=== PATIENT | female | born 1940 | race Caucasian/White ===

== ENCOUNTER → 2017-10-15 08:40 | Outpatient (CLI) | payer MEDICARE, OTHER, SELFPAY ==
[2017-10-15 11:08] LABS: Anion Gap 5 (5-15); BUN 24 mg/dL (7-18); BUN/Creat Ratio 24.3 RATIO (10-20); Calcium,Total 8.9 mg/dL (8.5-10.1); Chloride 109 mmol/L (98-107); Cholesterol 229 mg/dL (200); Creatinine, Serum 0.99 mg/dL (0.55-1.02); EST Glomerular Filtration Rate 58 mL/min (>60); Est Glom Filt Rate - Afr Amer 70 mL/min (>60); Glucose 100 mg/dL (74-106); High Density Lipoprotein 53 mg/dL; Potassium 4.6 mmol/L (3.5-5.1); Sodium Level 142 mmol/L (136-145); Thyroid Stim Hormone (TSH) 3.26 uIU/mL (0.358-3.74); Triglycerides 164 mg/dL; Very Low Density Lipoprotein 33 mg/dL (5-40)
== END ==
PROVIDERS: Family Provider Family Medicine; PCP Family Medicine; Visit Provider Nurse Practitioner Adult Health
DX: Z13.1 Encounter for screening for diabetes mellitus (principal); Z13.220 Encounter for screening for lipoid disorders; Z13.29 Encounter for screening for other suspected endocrine disorder
CPT/HCPCS: 36415; 80048; 80061; 84443

== ENCOUNTER 2018-06-28 20:47 | Emergency (ER) | payer MEDICARE, OTHER, SELFPAY ==
[2018-06-28 20:48] VITALS: BP 156/81; PULSE 105; RESP 20; TEMP 36.6; O2SAT 98; BMI 28.0
--- NOTE | 2018-06-28 22:00 | RAD_ITS ---
STUDY: X-RAY CHEST REASON FOR EXAM: Female, 77 years old. Cough TECHNIQUE: Frontal and lateral views COMPARISON: June 08, 2015 FINDINGS: The lungs are clear and expanded. There is no demonstrated pleural abnormality. Normal size heart. Normal mediastinum and aliya. Normal visualized pulmonary arteries. Normal visualized aortic arch and descending thoracic aorta. Degenerative changes of the visualized thoracic spine. Normal visualized ribs, clavicles, and shoulders. There is no demonstrated abnormality of the visualized soft tissue structures of the upper abdomen. RAD/Chest PA and Lateral IMPRESSION: Normal x-ray examination of the chest. Electronically Signed: Deandre Parks DO at 23:05 EST Tel [phone], Service support ,
[2018-06-28 22:17] VITALS: O2SAT 98
[2018-06-28 22:23] VITALS: PULSE 97; O2SAT 97
--- NOTE | 2018-06-29 00:13 | ED.DCSUM_ITS ---
- ER Visit Summary Date of Service: 06/29/18 Chief Complaint: Bad cold History of Present Illness: The patient is a 77 F with bad cold symptoms that started several days ago. The patient was exposed to her daughter who had similar symptoms. She just does not feel good. She feels tired and nauseated. She has a cough, runny nose, and left ear pain. Patient is fairly healthy otherwise. Denies chest pain. Denies fevers. Denies any vomiting or diarrhea. Denies any difficulty with urination. Physical Examination: Afebrile and vital signs unremarkable. Patient appears in no acute distress. HEENT exam unremarkable. Neck is nontender with good range of motion. Heart regular rate and rhythm. Lungs clear. Skin appears normal in color. Cranial nerves grossly intact. Moves all extremities. Test Results: Influenza test negative. Chest x-ray unremarkable. Emergency Department Course and Treatment: I suspect the patient has an upper respiratory infection. Because of her age and her symptoms. I did check a flu test and a chest x-ray. These tests were unremarkable. This is likely a viral syndrome. I see no indication at this time for antibiotics. Patient may take [id number] remedies for her symptoms. Follow-up with her family doctor for recheck. Return right away for new or worsening symptoms. Treatment Plan: As above Disposition: Discharge Impression: 1. Upper respiratory infection This note was generated with Press Play dictation software. It may contain incorrect words, spelling, and punctuation that were not noted in review of the chart prior to signing ED Disposition - Plan for ED Patient: Chief Complaint: Cold Sx Referrals: Abad Villarreal MD [Primary Care Provider] -
--- NOTE | 2018-06-29 00:13 | ED.DEP ---
ED Disposition - Plan for ED Patient: Chief Complaint: Cold Sx Instructions: ED Upper Resp Infec No Abx Tx Referrals: Abad Villarreal MD [Primary Care Provider] -
[2018-06-29 00:28] VITALS: BP 157/78; PULSE 93; O2SAT 96
== END 2018-06-29 00:28 | disposition home or self-care (01) ==
PROVIDERS: Emergency Provider Emergency Medicine; Family Provider Family Medicine; PCP Family Medicine
DX: J06.9 Acute upper respiratory infection, unspecified (principal)
CPT/HCPCS: 71046; 87804; 99282

== ENCOUNTER → 2018-08-21 13:28 | Outpatient (CLI) | payer MEDICARE, SELFPAY ==
--- NOTE | 2018-08-21 13:36 | BI_ITS ---
MAMMOGRAPHY - BILATERAL SCREENING REASON FOR EXAM: Female, 77 years old. Routine annual screening examination. PERTINENT HISTORY: Non-contributory. TECHNIQUE: Digital bilateral breast narinder (3D mammographic acquisition) in the CC and MLO projections. 2-D mediolateral oblique (MLO) and craniocaudad (CC) views of both breasts were obtained. CAD: Full Field Digital Mammography with Computer Added Detection was performed. COMPARISON: Comparison is made with prior study dated April 30, 2017 and November 23, 2010. FINDINGS: Breast Composition: The breasts are heterogeneously dense, which may obscure small masses. There are no dominant masses or suspicious calcifications. Stable small bilateral axillary lymph nodes. No other significant abnormalities are identified. There has been no significant change since the prior study. BI/SCREENING MAMM (CAD), BILAT IMPRESSION: Stable bilateral screening mammogram. Yearly follow-up mammogram recommended. (A) ASSESSMENT CATEGORY: BIRADS Category 2: Benign. A letter regarding these results will be sent to the patient by the facility within 30 days. Approximately 10% of breast cancers are not detected by mammography. A normal mammogram should not delay biopsy of a clinically suspicious abnormality. [id number] Electronically Signed: David Rojas MD at 14:51 EST Tel [phone], Service support ,
== END ==
PROVIDERS: Family Provider Family Medicine; PCP Family Medicine; Referring Provider Family Medicine; Visit Provider Family Medicine
DX: Z12.31 Encounter for screening mammogram for malignant neoplasm of breast (principal)
CPT/HCPCS: 77063; 77067

== ENCOUNTER → 2018-12-26 | Outpatient (CLI) | payer MEDICARE, OTHER, SELFPAY ==
[2018-12-26 10:08] LABS: Absolute Neutrophil Count 4.6 X10^3/uL (2.0-7.7); Basophil# 0.02 X10^3/uL; Basophil% 0.3 % (0-1); Eosinophil# 0.09 X10^3/uL; Eosinophils% 1.2 % (0-5); Hematocrit 40.8 % (37-47); Hemoglobin 13.1 g/dl (12.0-15.0); Lymphocyte % 27.1 % (19-41); Mean Corp Hgb Conc 32.1 g/gl (32-36); Mean Corpuscular Volume 90.5 fL (81-99); Mean Platelet Vol. 12.3 fl (6.2-12.0); Monocyte% 9.5 % (0-10); Neutrophil # 4.55 X10^3/uL (2.7-7.7); Neutrophil % 61.8 % (47-70); Platelet Count 187 K/mm3 (150-450); RBC Distribution Width CV 14.4 % (11.6-14.6); RBC Distribution Width SD 47.3 fl (35.1-43.9); Red Blood Count 4.51 M/mm3 (4.2-5.4); White Blood Count 7.4 K/mm3 (4.4-11.0)
[2018-12-26 10:11] LABS: POSITIVE COUNT NO; POSITIVE DIFFERENTIAL NO; POSITIVE MORPHOLOGY NO
[2018-12-26 10:24] LABS: Anion Gap 6 (5-15); BUN 27 mg/dL (7-18); BUN/Creat Ratio 24.8 RATIO (10-20); Calcium,Total 9.3 mg/dL (8.5-10.1); Chloride 107 mmol/L (98-107); Creatinine, Serum 1.09 mg/dL (0.55-1.02); EST Glomerular Filtration Rate 51 mL/min (>60); Est Glom Filt Rate - Afr Amer 62 mL/min (>60); Glucose 103 mg/dL (74-106); Potassium 4.2 mmol/L (3.5-5.1); Sodium Level 142 mmol/L (136-145)
[2018-12-26 10:46] LABS: Vitamin D,25 Hydroxy 31.2 ng/mL (29.95-100.01)
== END | disposition home or self-care (01) ==
LOC: MTLAB 08:45
PROVIDERS: Family Provider Family Medicine; PCP Family Medicine; Referring Provider Family Medicine; Visit Provider Family Medicine
DX: E55.9 Vitamin D deficiency, unspecified (principal); I77.9 Disorder of arteries and arterioles, unspecified; Z13.29 Encounter for screening for other suspected endocrine disorder
CPT/HCPCS: 36415; 80048; 82306; 84443; 85025

== ENCOUNTER → 2020-03-10 | Outpatient (CLI) | payer MEDICARE, OTHER, SELFPAY ==
--- NOTE | 2020-03-10 12:19 | BI_ITS ---
MAMMOGRAPHY - BILATERAL SCREENING REASON FOR EXAM: Female, 79 years old. Routine annual screening examination. PERTINENT HISTORY: Non-contributory. TECHNIQUE: Digital bilateral breast araseli (3D mammographic acquisition) in the CC and MLO projections. 2-D mediolateral oblique (MLO) and craniocaudad (CC) views of both breasts were obtained. CAD: Full Field Digital Mammography with Computer Added Detection was performed. COMPARISON: Comparison is made with prior study dated 08/21/2018 and 04/30/2017. FINDINGS: Breast Composition: The breasts are heterogeneously dense, which may obscure small masses. There are no dominant masses or suspicious calcifications. Stable small benign-appearing bilateral axillary lymph nodes. No other significant abnormalities are identified. There has been no significant change since the prior study. BI/SCREEN MAMM (CAD) W/ARASELI BILAT IMPRESSION: Stable bilateral screening mammogram. Yearly follow-up mammogram recommended. (A) ASSESSMENT CATEGORY: BIRADS Category 2: Benign. A letter regarding these results will be sent to the patient by the facility within 30 days. Approximately 10% of breast cancers are not detected by mammography. A normal mammogram should not delay biopsy of a clinically suspicious abnormality. [id number] Electronically Signed: David Rojas, at 13:29 EDT , Service support ,
== END | disposition home or self-care (01) ==
LOC: OPBI 12:18
PROVIDERS: PCP Family Medicine; Referring Provider Family Medicine; Visit Provider Family Medicine
DX: Z12.31 Encounter for screening mammogram for malignant neoplasm of breast (principal)
CPT/HCPCS: 77063; 77067

== ENCOUNTER → 2020-03-16 | Outpatient (CLI) | payer MEDICARE, OTHER, SELFPAY ==
[2020-03-16 18:14] LABS: Vitamin D,25 Hydroxy 35.2 ng/mL
[2020-03-16 18:24] LABS: ALB/GLOB Ratio 1.1 RATIO (0.9-2.4); AST(SGOT) 20 U/L (15-37); Alanine Aminotransfer ALT/SGPT 17 U/L (13-56); Albumin, Serum 3.9 g/dL (3.2-5.0); Alkaline Phosphatase 81 U/L (45-117); Anion Gap 5 (5-15); BUN 26 mg/dL (7-18); BUN/Creat Ratio 27.2 RATIO (10-20); Calcium,Total 8.7 mg/dL (8.5-10.1); Chloride 106 mmol/L (98-107); Cholesterol 263 mg/dL (200); Creatinine, Serum 0.96 mg/dL (0.55-1.02); EST Glomerular Filtration Rate 60 mL/min (>60); Est Glom Filt Rate - Afr Amer 72 mL/min (>60); Globulin 3.5 g/dL (2.2-4.2); Glucose 86 mg/dL (74-106); High Density Lipoprotein 50 mg/dL; Potassium 4.2 mmol/L (3.5-5.1); Protein, Total 7.4 g/dL (6.4-8.2); Sodium Level 139 mmol/L (136-145); Triglycerides 304 mg/dL; Very Low Density Lipoprotein 61 mg/dL (5-40)
== END | disposition home or self-care (01) ==
LOC: MTLAB 14:54
PROVIDERS: PCP Family Medicine; Referring Provider Family Medicine; Visit Provider Family Medicine
DX: M81.0 Age-related osteoporosis without current pathological fracture (principal); E78.00 Pure hypercholesterolemia, unspecified
CPT/HCPCS: 36415; 80053; 80061; 82306

== ENCOUNTER → 2020-03-25 | Outpatient (CLI) | payer MEDICARE, OTHER, SELFPAY ==
--- NOTE | 2020-03-25 12:12 | BD_ITS ---
STUDY: DUAL ENERGY X-RAY ABSORPTIOMETRY / DXA REASON FOR EXAM: Female, 79 years old. 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 COMPARISON: None. FINDINGS: Lumbar Spine (L1-L4): g/cm2 (0.946) / T-score (-1.9) / Z-score (0.0) Findings are suggestive of osteopenia with a moderate fracture risk. Left Femur Total: g/cm2 (0.745) / T-score (-2.1) / Z-score (-0.1) Left Femoral Neck: g/cm2 (0.612) / T-score (-3.1) / Z-score (-0.9) Right Femur Total: g/cm2 (0.803) / T-score (-1.6) / Z-score (0.4) Right Femoral Neck: g/cm2 (0.653) / T-score (-2.8) / Z-score (-0.6) BD/Dexa Bone Density Study IMPRESSION: The patient is considered osteoporotic as outlined below according to World Ryan Organization (WHO) criteria with a high fracture risk. Reference Information: The T-score is the number of standard deviations above or below the standard which is normal for young adults at their peak bone mineral density. The World Health Organization (WHO) interprets the T-scores as follows: Above -1 Normal bone density Between -1 and -2.5 Osteopenia Equal to / or below -2.5 Osteoporosis As a practical clinical guideline, osteopenia may be graded as follows: Mild -1 through -1.5 Moderate -1.6 through -2.0 Severe -2.1 through -2.4 The Z-score is the number of standard deviations above or below age-matched controls. A Z-score of less than -1.5 would be considered abnormal. References: 1. NIH Osteoporosis and Related Bone Diseases http://www.osteo.org 2. International Society for Clinical Densitometry http://www.iscd.org 3. National Osteoporosis Foundation http://www.nof.org Electronically Signed: David Rojas, at 13:32 EDT , Service support ,
== END | disposition home or self-care (01) ==
LOC: OPBD 12:06
PROVIDERS: PCP Family Medicine; Referring Provider Family Medicine; Visit Provider Family Medicine
DX: M81.0 Age-related osteoporosis without current pathological fracture (principal)
CPT/HCPCS: 77080

== ENCOUNTER → 2021-06-07 14:17 | Outpatient (CLI) | payer MEDICARE, OTHER, SELFPAY ==
--- NOTE | 2021-06-07 14:19 | BI_ITS ---
MAMMOGRAPHY - BILATERAL SCREENING REASON FOR EXAM: Female, 80 years old. Routine annual screening examination. PERTINENT HISTORY: Non-contributory. TECHNIQUE: Digital bilateral breast narinder (3D mammographic acquisition) in the CC and MLO projections. 2-D mediolateral oblique (MLO) and craniocaudad (CC) views of both breasts were obtained. CAD: Full Field Digital Mammography with Computer Added Detection was performed. COMPARISON: Comparison is made with prior study dated 03/10/2020 and 08/21/2018. FINDINGS: Breast Composition: The breasts are heterogeneously dense, which may obscure small masses. There are no dominant masses or suspicious calcifications. Stable small benign appearing bilateral axillary nodes. No other significant abnormalities are identified. There has been no significant change since the prior study. BI/SCREENING MAMM (CAD), BILAT IMPRESSION: Stable bilateral screening mammogram. Yearly follow-up mammogram recommended. (A) ASSESSMENT CATEGORY: BIRADS Category 2: Benign. A letter regarding these results will be sent to the patient by the facility within 30 days. Approximately 10% of breast cancers are not detected by mammography. A normal mammogram should not delay biopsy of a clinically suspicious abnormality. [id number] Electronically Signed: David Rojas MD at 11:12 EDT , Service support ,
== END ==
PROVIDERS: Referring Provider Family Medicine; Visit Provider Family Medicine
DX: Z12.31 Encounter for screening mammogram for malignant neoplasm of breast (principal)
CPT/HCPCS: 77067

== ENCOUNTER 2021-08-24 16:41 | Outpatient (CLI) | payer MEDICARE, SELFPAY ==
[2021-08-24 17:08] LABS: Absolute Lymphocyte Count 2.51 X10^3/uL (0.83-4.51); Absolute Neutrophil Count 6.7 X10^3/uL (2.0-7.7); Basophil# 0.03 X10^3/uL; Basophil% 0.3 % (0-1); Eosinophil# 0.12 X10^3/uL; Eosinophils% 1.2 % (0-5); Hematocrit 40.6 % (37-47); Hemoglobin 12.9 g/dL (12.0-15.0); Lymphocyte # 2.51 X10^3/ul (0.83-4.51); Mean Corp Hgb Conc 31.8 g/dL (32-36); Mean Corpuscular Hgb 28.9 pg (27.0-32.0); Mean Corpuscular Volume 90.8 fL (81-99); Mean Platelet Vol. 11.7 fl (6.2-12.0); Monocyte# 0.68 X10^3/uL; Monocyte% 6.8 % (0-10); NRBC Flagged by Analyzer 0 % (0-5); Neutrophil # 6.65 X10^3/uL (2.7-7.7); Neutrophil % 66.4 % (47-70); Platelet Count 236 K/mm3 (150-450); RBC Distribution Width CV 13.9 % (11.6-14.6); RBC Distribution Width SD 46.1 fl (35.1-43.9); Red Blood Count 4.47 M/mm3 (4.2-5.4)
[2021-08-24 18:16] LABS: ALB/GLOB Ratio 1.1 RATIO (0.9-2.4); AST(SGOT) 17 U/L (15-37); Alanine Aminotransfer ALT/SGPT 17 U/L (13-56); Albumin, Serum 3.8 g/dL (3.2-5.0); Alkaline Phosphatase 69 U/L (45-117); Anion Gap 5 (5-15); BUN 24 mg/dL (7-18); Calcium,Total 9.1 mg/dL (8.5-10.1); Chloride 107 mmol/L (98-107); Creatinine, Serum 0.96 mg/dL (0.55-1.02); EST Glomerular Filtration Rate 59 mL/min (>60); Est Glom Filt Rate - Afr Amer 72 mL/min (>60); Globulin 3.4 g/dL (2.2-4.2); Glucose 94 mg/dL (74-106); Potassium 4.4 mmol/L (3.5-5.1); Protein, Total 7.2 g/dL (6.4-8.2); Sodium Level 138 mmol/L (136-145); Thyroid Stim Hormone (TSH) 2.79 uIU/mL (0.358-3.74)
[2021-08-25 09:03] LABS: Syphilis Antibodies Non-reactive; Vitamin B12 345 pg/mL (211-911); Vitamin D,25 Hydroxy 36.3 ng/mL
== END 2021-08-24 23:59 | disposition short-term general hospital (02) ==
LOC: POLAB3 16:44
PROVIDERS: Visit Provider Family Medicine Geriatric Medicine
DX: E55.9 Vitamin D deficiency, unspecified (principal); G30.9 Alzheimer's disease, unspecified; R53.83 Other fatigue
CPT/HCPCS: 36415; 80053; 82306; 82607; 82746; 84443; 85025; 86780

== ENCOUNTER 2021-11-24 13:38 | Outpatient (CLI) | payer MEDICARE, SELFPAY ==
--- NOTE | 2021-11-24 13:52 | CDU_ITS ---
Reason For Study: Disorder of arteries and arterioles Rt. Velocities/BP Lt. Velocities/BP Prox CCA 116.5/17.3 cm/sec. Prox CCA 99.5/16 cm/sec. Mid CCA 83.9/13.4 cm/sec. Mid CCA 70.8/8.2 cm/sec. Dist CCA 74.7/10.8 cm/sec. Dist CCA 85.1/13.4 cm/sec. Prox ICA 56.5/12.1 cm/sec. Prox ICA 47.7/10.8 cm/sec. Mid ICA 66.9/20 cm/sec. Mid ICA 73/13.6 cm/sec. Dist ICA 76/18.6 cm/sec. Dist ICA 64.5/17 cm/sec. Rt. ICA/CCA = 0.91. Lt. ICA/CCA = 0.86. Prox ECA 74.7/5.6 cm/sec. Prox ECA 79.9/5.6 cm/sec. Rt. Vert. 57.8/16 cm/sec. Lt. Vert. 41.9/7.8 cm/sec. Right Extracranial There is homogeneous, smooth atherosclerotic plaque noted in the right common carotid artery. There is heterogeneous, irregular atherosclerotic plaque noted in the right internal carotid artery. There is intimal thickening but no significant atherosclerotic plaque noted in the right external carotid artery. Antegrade flow is noted in the right vertebral artery. Left Extracranial There is intimal thickening but no significant atherosclerotic plaque noted in the left common carotid artery. There is heterogeneous, irregular atherosclerotic plaque noted in the left internal carotid artery. The left internal carotid artery is very tortuous. There is intimal thickening but no significant atherosclerotic plaque noted in the left external carotid artery. Antegrade flow is noted in the left vertebral artery. Procedure Carotid Duplex 15612. This is a Carotid Duplex examination using B-mode, color flow and specral Doppler. Exam performed in department. VL/Carotid Duplex Ultrasound Interpretation Summary Mild (<50%) stenosis right extracranial internal carotid. Mild (<50%) stenosis left extracranial internal carotid. Flow within the vertebral arteries is antegrade bilaterally. Ordering Physician: Davin Wray Referring Physician: Davin Wray Performed By: Janette Maki RVT
== END 2021-11-24 23:59 | disposition home or self-care (01) ==
PROVIDERS: Referring Provider Family Medicine; Visit Provider Family Medicine
DX: I77.9 Disorder of arteries and arterioles, unspecified (principal); I79.8 Other disorders of arteries, arterioles and capillaries in diseases classified elsewhere
CPT/HCPCS: 93880

== ENCOUNTER 2021-11-30 19:03 | Emergency (ER) | payer MEDICARE, SELFPAY ==
[2021-11-30 19:04] VITALS: BP 193/86; PULSE 63; RESP 19; TEMP 36.6; O2SAT 100; BMI 26.2
--- NOTE | 2021-11-30 19:22 | RAD_ITS ---
EXAM: XR LEFT FOOT COMPLETE, 3 OR MORE VIEWS CLINICAL INDICATION: injury fall tonight. anterior pain and swelling to left foot TECHNIQUE: Frontal, lateral and oblique views of the left foot. This report was created using [facility] report generation technology. COMPARISON: None. FINDINGS: BONES/JOINTS: Degenerative findings of first metatarsal phalangeal joint. There is a calcaneal spur. There is an enthesophyte involving the posterior superior calcaneus at the site of insertion of the Achilles tendon. No acute fracture. No subluxation. Normal alignment. No sclerotic or destructive changes observed. SOFT TISSUES: Unremarkable. No soft tissue swelling or gas. No radiopaque foreign body. RAD/Foot min 3 Views IMPRESSION: Degenerative findings of first metatarsal phalangeal joint. Electronically Signed: Justin Olivares MD at 19:56 EDT Reading Location ID and State: [facility] / [place] , Service support ,
[2021-11-30] MEDS: Acetaminophen 500 MG Tablet 1000 MG PO (19:24)
--- NOTE | 2021-11-30 19:24 | EDS_ITS ---
HPI History of Present Illness Chief Complaint: Lower Extremity Injury Informant: patient Narrative Narrative: Brought in by private for left foot injury occurring 3 PM today. Reports getting off the couch from a nap when she is through the blanket over catching her foot coming down on this. There is no head injuries. Swelling to the dorsal foot. Increased [place] walking therefore came by EMS no medication taken. No history of fractures. No anticoagulation medicines. States she takes a vitamin D and then was started on a statin yesterday by her PCP after carotid studies. No other complaints. Shortly after received fax from urgent care patient was sent from there. There is concerns of patient was dizzy, however she denies any of the symptoms. No headaches. No falls. No images were performed at the facility. Prior similar symptoms: No PFSH PFSH Home Medications Vitamin D3 1 tab PO DAILY 06/28/18 [History Last Taken Unknown] Allergy/AdvReac Type Severity Reaction Status Date / Time Sulfa (Sulfonamide AdvReac Vomiting Verified 11/30/21 19:06 Antibiotics) Social History Smoking Status: Never smoker ROS ROS ED Constitutional Constitutional ED: Denies chills, fever(s) or sweats Eyes Eyes: Denies change in vision ENT ENT ED: Denies dysphagia or sore throat Cardiovascular Cardiovascular: Denies chest pain, leg edema, palpitations or racing heartbeat Respiratory/Chest Respiratory/Chest: Denies cough, dyspnea or dyspnea on exertion Gastrointestinal Gastrointestinal: Denies abdominal pain, diarrhea, nausea or vomiting Genitourinary Genitourinary ED: Denies dysuria, hematuria or urinary frequency Musculoskeletal Musculoskeletal: Reports other Details: Left foot injury ; Denies back pain, extremity pain or neck pain Integumentary Denies rash or wounds Neurologic Neurologic: Denies headache(s), paresthesias or weakness EXAM Physical Exam Const Vital Signs: 11/30/21 19:04 Temperature 97.8 F Temperature Source Temporal Pulse Rate 63 Respiratory Rate 19 H Blood Pressure 193/86 H Blood Pressure Mean 121 Pulse Ox 100 Oxygen Delivery Method Room Air Positive well nourished and well developed General Appearance ED: well developed and NAD HEENT Reports moist mucous membranes normocephalic and atraumatic Eyes PERRL, EOMs intact bilaterally and conjunctivae normal General Eye ED: Yes normal appearance of both eyes Neck no lymphadenopathy and supple General: Negative for tenderness Chest Wall Chest: Negative for tenderness Resp normal respiratory effort and normal air movement Effort and Inspection: symmetric chest movement; Negative for respiratory distress Cardio regular rate, regular rhythm and no murmurs Peripheral Pulses: pulses 2+ throughout GI normal to inspection, nondistended, normoactive bowel sounds and non-tender Palpation: Negative for guarding or rebound tenderness present Back/Spine no CVA tenderness and no thoracic nor lumbar tenderness Extremity Extremity Narrative: Left lower extremity: No knee or ankle tenderness. There is slight midfoot tenderness there is ecchymosis across the dorsal foot mid region there is mild proximal fifth base tenderness. Skin is intact. Neuro vas intact distally. General Extremety ED: Yes edema; Negative for tenderness General Extremity: edema Neuro oriented x3 and no sensory deficits noted Sensorium / Orientation: awake and alert Skin no rashes or lesions noted and no wounds MDM MDM MDM Narrative Medical decision making narrative: Three-view x-ray left foot reviewed by myself and read by radiology no acute fractures degenerative changes noted of the first metatarsophalangeal joint. Tylenol was given Gaurav wrap to the foot. She states she has a cane at home. She will use this for stability. She will continue Tylenol as needed. All questions were answered. Radiography Diagnostic Testing: Clinical Impression(s) from Imaging Studies Foot X-Ray 11/30/21 19:22 IMPRESSION: Degenerative findings of first metatarsal phalangeal joint. Electronically Signed: Justin Olivares MD at 19:56 EDT Reading Location ID and State: [facility] / [place] , Service support , Discharge Plan Triage Chief Complaint: Lower Extremity Injury ED Provider: Carlos Borjas Dx/Rx/DC Orders Clinical Impression: Sprain of foot, left, Contusion of foot, left, Elevated blood pressure reading Instructions: ED Foot Contusion, ED Foot Sprain Prescriptions: No Action Vitamin D3 1 tab PO DAILY RF: 0 Primary Care Provider: Davin Wray Referrals: Davin Wray MD [Primary Care Provider] - 5-7 Days Activity Restrictions/Additional Instructions: left foot xray negative. Continue gaurav wrap, use cane as needed. Continue tylenol as needed. follow up with your doctor. Disposition Disposition: Home, Self Care Discharge Date/Time: 11/30/21 20:07
== END 2021-11-30 20:07 | disposition home or self-care (01) ==
PROVIDERS: Emergency Provider Emergency Medicine; PCP Family Medicine; Visit Provider Emergency Medicine
DX: S93.602A Unspecified sprain of left foot, initial encounter (principal); R03.0 Elevated blood-pressure reading, without diagnosis of hypertension; W19.XXXA Unspecified fall, initial encounter
CPT/HCPCS: 73630; 99283

== ENCOUNTER → 2022-04-04 | Outpatient (CLI) | payer MEDICARE, SELFPAY ==
--- NOTE | 2022-04-04 10:52 | BD_ITS ---
STUDY: DUAL ENERGY X-RAY ABSORPTIOMETRY / DXA REASON FOR EXAM: Female, 81 years old. [id number]. The patient is postmenopausal. TECHNIQUE: Bone Mineral Density (BMD) measurements of lumbar spine and bilateral hips were obtained. COMPARISON: Comparison is made with prior study 03/25/2020. FINDINGS: Lumbar Spine (L1-L4): g/cm2 (0.801) / T-score (-2.1) / Z-score (0.6) Findings are suggestive of osteopenia with a high fracture risk. Left Femur Total: g/cm2 (0.693) / T-score (-2.0) / Z-score (0.2) Left Femoral Neck: g/cm2 (0.509) / T-score (-3.1) / Z-score (-0.6) Right Femur Total: g/cm2 (0.755) / T-score (-1.5) / Z-score (0.7) Right Femoral Neck: g/cm2 (0.531) / T-score (-2.9) / Z-score (-0.4) The T-Scores on the most recent prior examination were: Lumbar Spine (L1-L4): There has been worsening of bone density since the previous examination. Left Femur Total: which represents an improvement of 0.9. Right Femur Total: which represents an improvement of 1.6%. BD/Dexa Bone Density Study IMPRESSION: The patient is considered osteoporotic as outlined below according to World [employer] Organization (WHO) criteria with a high fracture risk. There has been improvement of bone density since the previous examination. Reference Information: The T-score is the number of standard deviations above or below the standard which is normal for young adults at their peak bone mineral density. The World Health Organization (WHO) interprets the T-scores as follows: Above -1 Normal bone density Between -1 and -2.5 Osteopenia Equal to / or below -2.5 Osteoporosis As a practical clinical guideline, osteopenia may be graded as follows: Mild -1 through -1.5 Moderate -1.6 through -2.0 Severe -2.1 through -2.4 The Z-score is the number of standard deviations above or below age-matched controls. A Z-score of less than -1.5 would be considered abnormal. References: 1. NIH Osteoporosis and Related Bone Diseases www osteo.org 2. International Society for Clinical Densitometry www iscd.org 3. National Osteoporosis Foundation www nof.org Electronically Signed: David Rojas MD at 10:23 EDT ,
== END | disposition home or self-care (01) ==
LOC: OPBD 10:42
PROVIDERS: PCP Family Medicine; Visit Provider Family Medicine
DX: M81.0 Age-related osteoporosis without current pathological fracture (principal)
CPT/HCPCS: 77080

== ENCOUNTER → 2022-05-17 | Outpatient (CLI) | payer MEDICARE, SELFPAY ==
[2022-05-17 15:28] LABS: Color, Urine Yellow (Yellow); Glucose, Dipstick Normal (Normal); Ketone-Dipstick Negative (Negative); Leukocyte Esterase-Dipstick 500 /ul (Negative); Nitrite-Dipstick Negative (Negative); Occult Blood-Urine 50 /ul (Negative); Protein-Dipstick 30 mg/dl (Negative); Urine Bilirubin Dipstick Negative (Negative); Urine Clarity Sl. Cloudy (Clear); Urine Urobilinogen Normal (Normal)
== END | disposition home or self-care (01) ==
PROVIDERS: PCP Family Medicine; Referring Provider Family Medicine; Visit Provider Family Medicine
DX: N39.0 Urinary tract infection, site not specified (principal)
CPT/HCPCS: 81002; 87077; 87086; 87088

== ENCOUNTER → 2022-06-05 | Outpatient (CLI) | payer MEDICARE, SELFPAY ==
[2022-06-05 15:43] LABS: ALB/GLOB Ratio 0.9 RATIO (0.9-2.4); AST(SGOT) 22 U/L (15-37); Alanine Aminotransfer ALT/SGPT 19 U/L (13-56); Albumin, Serum 3.3 g/dL (3.2-5.0); Alkaline Phosphatase 75 U/L (45-117); Anion Gap 8 (5-15); BUN 22 mg/dL (7-18); BUN/Creat Ratio 22.6 RATIO (10-20); Chloride 104 mmol/L (98-107); Cholesterol 240 mg/dL (200); Creatinine, Serum 0.97 mg/dL (0.55-1.02); EST Glomerular Filtration Rate 58 mL/min (>60); Est Glom Filt Rate - Afr Amer 70 mL/min (>60); Globulin 3.7 g/dL (2.2-4.2); Glucose 90 mg/dL (74-106); High Density Lipoprotein 52 mg/dL; Potassium 4.5 mmol/L (3.5-5.1); Sodium Level 139 mmol/L (136-145); Triglycerides 215 mg/dL; Very Low Density Lipoprotein 43 mg/dL (5-40); Vitamin D,25 Hydroxy 49.2 ng/mL
[2022-06-05 16:11] LABS: PTHIN 51.1 pg/mL (18.4-80.1)
== END | disposition home or self-care (01) ==
LOC: MFPLAB 11:17
PROVIDERS: PCP Family Medicine; Visit Provider Family Medicine
DX: M81.0 Age-related osteoporosis without current pathological fracture (principal); I77.9 Disorder of arteries and arterioles, unspecified; E78.00 Pure hypercholesterolemia, unspecified
CPT/HCPCS: 36415; 80053; 80061; 82306; 83970

== ENCOUNTER → 2022-08-29 | Outpatient (CLI) | payer MEDICARE, SELFPAY ==
[2022-08-29 15:31] LABS: Hematocrit 42.9 % (37-47); Hemoglobin 13.4 g/dL (12.0-15.0); Mean Corp Hgb Conc 31.2 g/dL (32-36); Mean Corpuscular Hgb 29.1 pg (27.0-32.0); Mean Corpuscular Volume 93.3 fL (81-99); Mean Platelet Vol. 13.2 fl (6.2-12.0); Platelet Count 174 K/mm3 (150-450); White Blood Count 7.7 K/mm3 (4.4-11.0)
[2022-08-29 16:15] LABS: CRP 6.55 mg/L (0.0-3.0)
[2022-08-31 15:08] LABS: Cytoplasmic Ab (C-ANCA) <1:20 titer (Neg:<1:20)
[2022-08-31 18:55] LABS: Perinuclear Ab (P-ANCA) <1:20 titer (Neg:<1:20)
== END | disposition home or self-care (01) ==
LOC: MTLAB 13:33
PROVIDERS: PCP Family Medicine; Referring Provider Family Medicine; Visit Provider Family Medicine
DX: J32.9 Chronic sinusitis, unspecified (principal)
CPT/HCPCS: 36415; 85027; 86140; 86256

== ENCOUNTER → 2023-03-15 | Outpatient (CLI) | payer MEDICARE, SELFPAY ==
--- NOTE | 2023-03-15 09:27 | US_ITS ---
EXAM: US ABDOMEN LIMITED CLINICAL INDICATION: Fullness in L upper quadrant TECHNIQUE: Real-time ultrasound of the abdomen with image documentation. COMPARISON: No relevant prior studies available. FINDINGS: SPLEEN: Mildly heterogeneous. No focal lesion. 9.5 cm x 4.4 cm x 7.6 cm. Patent periportal vessels. LEFT KIDNEY: 8.7 cm x 4.8 cm x 4.9 cm, lower limits of normal size. Isoechoic renal cortex, this may be due to medical renal disease or normal variation. No hydronephrosis or perinephric fluid. Shadowing echogenic 1.8 cm x 1.4 cm x 0.4 cm structure in the left renal pelvis and the stone. FLUID: No fluid in the left upper quadrant. OTHER: Evaluated reported region of fullness in the left upper quadrant, separate from spleen and kidney. No specific acute abnormality. US/Abdomen Limited IMPRESSION: Echogenic shadowing focus at the left renal pelvis may be stone. No jt hydronephrosis or perinephric fluid. Nonspecific left upper quadrant findings. Limited left upper quadrant exam. Electronically Signed: Coty Aldana MD at 7:44 EDT ,
== END | disposition home or self-care (01) ==
LOC: US 09:26
PROVIDERS: PCP Family Medicine; Referring Provider Family Medicine; Visit Provider Family Medicine
DX: R19.8 Other specified symptoms and signs involving the digestive system and abdomen (principal)
CPT/HCPCS: 76705

== ENCOUNTER → 2023-05-29 | Outpatient (CLI) | payer MEDICARE, SELFPAY ==
[2023-05-29 15:15] LABS: Absolute Lymphocyte Count 2.42 X10^3/uL (0.83-4.51); Absolute Neutrophil Count 6.2 X10^3/uL (2.0-7.7); Basophil# 0.04 X10^3/uL; Basophil% 0.4 % (0-1); Eosinophil# 0.09 X10^3/uL; Eosinophils% 0.9 % (0-5); Hematocrit 43.7 % (37-47); Hemoglobin 13.3 g/dL (12.0-15.0); Lymphocyte # 2.42 X10^3/ul (0.83-4.51); Lymphocyte % 25.1 % (19-41); Mean Corp Hgb Conc 30.4 g/dL (32-36); Mean Corpuscular Hgb 28.8 pg (27.0-32.0); Mean Corpuscular Volume 94.6 fL (81-99); Mean Platelet Vol. 13.3 fl (6.2-12.0); Monocyte# 0.86 X10^3/uL; Monocyte% 8.9 % (0-10); NRBC Flagged by Analyzer 0 % (0-5); Neutrophil # 6.22 X10^3/uL (2.7-7.7); Neutrophil % 64.4 % (47-70); Platelet Count 196 K/mm3 (150-450); RBC Distribution Width CV 14.1 % (11.6-14.6); RBC Distribution Width SD 48.7 fl (35.1-43.9); Red Blood Count 4.62 M/mm3 (4.2-5.4); White Blood Count 9.7 K/mm3 (4.4-11.0)
[2023-05-29 16:08] LABS: ALB/GLOB Ratio 0.9 RATIO (0.9-2.4); AST(SGOT) 20 U/L (15-37); Alanine Aminotransfer ALT/SGPT 18 U/L (13-56); Albumin, Serum 3.5 g/dL (3.2-5.0); Alkaline Phosphatase 78 U/L (45-117); Anion Gap 6 (5-15); BUN 22 mg/dL (7-18); BUN/Creat Ratio 22.8 RATIO (10-20); Calcium,Total 8.8 mg/dL (8.5-10.1); Chloride 107 mmol/L (98-107); Creatinine, Serum 0.97 mg/dL (0.55-1.02); EST Glomerular Filtration Rate 58 mL/min (>60); Est Glom Filt Rate - Afr Amer 71 mL/min (>60); Globulin 3.8 g/dL (2.2-4.2); Glucose 77 mg/dL (74-106); Potassium 4.5 mmol/L (3.5-5.1); Protein, Total 7.3 g/dL (6.4-8.2); Sodium Level 139 mmol/L (136-145); Thyroid Stim Hormone (TSH) 3.29 uIU/mL (0.358-3.74)
== END | disposition home or self-care (01) ==
LOC: MFPLAB 11:43
PROVIDERS: PCP Family Medicine; Visit Provider Family Medicine
DX: R61 Generalized hyperhidrosis (principal)
CPT/HCPCS: 36415; 80053; 84443; 85025

== ENCOUNTER 2023-08-28 09:58 | Emergency (ER) | payer MEDICARE, SELFPAY ==
[2023-08-28 09:59] VITALS: RESP 16; TEMP 36.3; BMI 43.4
[2023-08-28 10:03] VITALS: BP 177/64; PULSE 55; RESP 16; O2SAT 98
--- NOTE | 2023-08-28 10:09 | EKG12_ITS ---
Test Reason : CP Blood Pressure : / mmHG Vent. Rate : 053 BPM Atrial Rate : 053 BPM P-R Int : 162 ms QRS Dur : 068 ms QT Int : 402 ms P-R-T Axes : 019 022 050 degrees QTc Int : 377 ms Poor data quality, interpretation may be adversely affected Sinus bradycardia Otherwise normal ECG Confirmed by VIVEK REA, JENNIFER ([id number]), proposal editor BENRARD FAITH ([id number]) on 08/29/2023 9:23:38 AM Referred By: JAMAR Confirmed By:JENNIFER DOYLE MD
--- NOTE | 2023-08-28 10:09 | RAD_ITS ---
STUDY: X-RAY CHEST REASON FOR EXAM: Female, 82 years old. Sudden onset of chest pain. TECHNIQUE: Single AP portable view of the chest. COMPARISON: Comparison is made with prior study of June 28, 2018. FINDINGS: EKG electrodes are seen. Mild elevation of the right hemidiaphragm. Scattered calcified granulomas. No acute abnormality is seen. There is no demonstrated pleural abnormality. Normal size heart. Normal mediastinum and aliya. Normal visualized pulmonary arteries. There is atherosclerotic tortuosity of the aortic arch and descending thoracic aorta. There are diffuse degenerative changes of the visualized thoracic spine. Normal visualized ribs, clavicles, and shoulders. There is no demonstrated abnormality of the visualized soft tissue structures of the upper abdomen. RAD/Chest 1 View (Portable) IMPRESSION: No acute abnormality is seen. Electronically Signed: David Rojas MD at 11:07 EST ,
[2023-08-28 10:16] VITALS: O2SAT 97
[2023-08-28 10:23] LABS: Absolute Lymphocyte Count 1.76 X10^3/uL (0.83-4.51); Absolute Neutrophil Count 9.7 X10^3/uL (2.0-7.7); Basophil# 0.04 X10^3/uL; Basophil% 0.3 % (0-1); Eosinophil# 0.07 X10^3/uL; Eosinophils% 0.6 % (0-5); Hematocrit 42.2 % (37-47); Hemoglobin 13.3 g/dL (12.0-15.0); Lymphocyte # 1.76 X10^3/ul (0.83-4.51); Mean Corp Hgb Conc 31.5 g/dL (32-36); Mean Corpuscular Hgb 28.9 pg (27.0-32.0); Mean Corpuscular Volume 91.7 fL (81-99); Mean Platelet Vol. 12.6 fl (6.2-12.0); Monocyte# 0.95 X10^3/uL; Monocyte% 7.5 % (0-10); NRBC Flagged by Analyzer 0 % (0-5); Neutrophil # 9.72 X10^3/uL (2.7-7.7); Platelet Count 181 K/mm3 (150-450); RBC Distribution Width CV 13.9 % (11.6-14.6); RBC Distribution Width SD 46.6 fl (35.1-43.9); White Blood Count 12.6 K/mm3 (4.4-11.0)
--- NOTE | 2023-08-28 10:35 | EX.ED.DYSGE1 ---
HPI History of Present Illness Chief Complaint: Chest Pain Narrative Narrative: 82-year-old female presenting with neck pain. She states it started in the upper back and radiated up into her neck and possibly more to the left. Patient states this started about 6:00 AM. She states it lasted for about 3 hours. She states that her daughter came over and gave her some aspirin. She denies any chest pain. She states that when EMS arrived she felt like she was going to vomit but states she did not that all of her symptoms resolved. Patient states she was otherwise well prior to this. Patient states he was active yesterday and put away a lot of [place] gear. She denies any injury. Denies cardiac or pulmonary history. Patient states he has been otherwise healthy. No fevers, chills, cough. PFSH PFSH Home Medications Vitamin D3 1 tab PO DAILY 06/28/18 [History Last Taken Unknown] Allergy/AdvReac Type Severity Reaction Status Date / Time Sulfa (Sulfonamide AdvReac Vomiting Verified 05/08/23 15:06 Antibiotics) Social History Smoking Status: Never smoker ROS ROS ED Constitutional Constitutional ED: Denies chills, fever(s) or sweats Eyes Eyes: Denies blurry vision or change in vision ENT ENT ED: Denies ear pain or sore throat Cardiovascular Cardiovascular: Denies chest pain, palpitations or racing heartbeat Respiratory/Chest Respiratory/Chest: Reports sputum; Denies cough or dyspnea Gastrointestinal Gastrointestinal: Denies abdominal pain, constipation, diarrhea, nausea or vomiting Genitourinary Genitourinary ED: Denies dysuria, hematuria or urinary frequency Musculoskeletal Musculoskeletal: Reports neck pain; Denies arthralgias or myalgias Integumentary Denies abscess, Abrasions or rash Neurologic Neurologic: Denies headache(s), paresthesias or weakness Psychiatric Psychiatric: Denies anxiety, depression, suicidal ideation or suicidal thoughts Endocrine Endocrinology: Denies polydipsia or polyuria EXAM Physical Exam Const Vital Signs: 08/28/23 09:59 08/28/23 10:03 08/28/23 10:16 Temperature 97.3 F L Temperature Source Temporal Pulse Rate 55 L Respiratory Rate 16 16 Blood Pressure 177/64 H Blood Pressure Mean 101 Pulse Ox 98 97 Oxygen Delivery Method Room Air Room Air 08/28/23 13:15 Temperature Temperature Source Pulse Rate 60 Respiratory Rate 16 Blood Pressure 126/66 H Blood Pressure Mean 86 Pulse Ox 97 Oxygen Delivery Method Positive well nourished General Appearance ED: NAD; Negative for pallor HEENT Reports moist mucous membranes Negative for trauma Eyes PERRL and EOMs intact bilaterally Neck no lymphadenopathy and no JVD General: Negative for tenderness Chest Wall inspection of chest normal Resp normal respiratory effort and clear to auscultation bilaterally Auscultation: Negative for rales, rhonchi or wheezes Cardio regular rhythm Rate: bradycardia Back/Spine Back/Spine Narrative: Cervical spinal tenderness, deformity, step-off. No paraspinal musculature tenderness on the left or the right adjacent to the cervical spine. There is no tenderness around the trapezius on the left. No bruising, rashes. Patient able to use bilateral upper extremities to pull herself forward in the bed and has no pain. Extremity normal to inspection General Extremety ED: Negative for edema General Extremity: Negative for edema Neuro oriented x3 and CN's II-XII intact bilaterally Sensorium / Orientation: alert Psych mental status grossly normal Skin no rashes or lesions noted General Skin Exam: Negative for jaundice or pallor MDM MDM MDM Narrative Medical decision making narrative: Patient presenting with neck pain which has resolved. She states it lasted for few hours. Heating pad did make this better. I did not reproduce any of the pain on examination. Family concern for atypical cardiac symptoms. Patient did not have any chest pain. CBC shows a white leukocytosis at 12.6. Hemoglobin 13.3. Platelets are 181. Renal function electrolytes within normal limits. High-sensitivity troponin is 7. EKG on my interpretation shows a sinus bradycardia at a ventricular to 53 bpm without sign of ischemic change. Chest x-ray interpretation is no acute process. Delta troponin came back at 6 therefore there is no significant interval change. At this point feel the patient stable for discharge home. Return precautions were discussed. Impression: 1. Neck pain 2. Concern for ACS Lab Data Attestation: I reviewed the patient's lab results. Labs: Laboratory Results - last 24 hr 08/28/23 08/28/23 10:10 12:11 WBC 12.6 H RBC 4.60 Hgb 13.3 Hct 42.2 MCV 91.7 MCH 28.9 MCHC 31.5 L RDW Std Deviation 46.6 H RDW Coeff of Jaime 13.9 Plt Count 181 MPV 12.6 H Immature Gran % (Auto) 0.600 Neut % (Auto) 77.0 H Lymph % (Auto) 14.0 L Esmeralda % (Auto) 7.5 Eos % (Auto) 0.6 Baso % (Auto) 0.3 Absolute Neuts (auto) 9.7 H Absolute Lymphs (auto) 1.76 Nucleated RBC % 0 Sodium 139 Potassium 4.1 Chloride 108 H Carbon Dioxide 27.0 Anion Gap 4 L BUN 23 H Creatinine 0.88 Estim Creat Clear Calc 40.60 Est GFR (MDRD) Af Amer 79 Est GFR (MDRD) Non-Af 65 BUN/Creatinine Ratio 26.2 H Glucose 119 H Calcium 9.3 Troponin I High Sens 7 6 Radiography Diagnostic Testing: Clinical Impression(s) from Imaging Studies Chest X-Ray 08/28/23 10:09 IMPRESSION: No acute abnormality is seen. 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 Next of kin: [place] law dictates a PRIORITY LIST for identifying legal decision-maker/legal next of kin in the following order (LNOK): 1st: The patient?s legal guardian, if any 2nd: The patient's spouse (if status is questionable, consult Risk Management) 3rd: The patient?s adult child(pily) (majority, if multiple children) 4th: The patient?s parents 5th: The patient?s adult siblings (majority, if multiple children siblings)
[2023-08-28 10:49] LABS: Anion Gap 4 (5-15); BUN 23 mg/dL (7-18); BUN/Creat Ratio 26.2 RATIO (10-20); Calcium,Total 9.3 mg/dL (8.5-10.1); Chloride 108 mmol/L (98-107); Creatinine, Serum 0.88 mg/dL (0.55-1.02); EST Glomerular Filtration Rate 65 mL/min (>60); Est Glom Filt Rate - Afr Amer 79 mL/min (>60); Glucose 119 mg/dL (74-106); Potassium 4.1 mmol/L (3.5-5.1); Sodium Level 139 mmol/L (136-145); Troponin-I HS (w/2H Reflex) 7 pg/mL (3.0-54.0)
--- OUTSIDE RECORDS SUMMARY | 2023-08-28 11:32 | XMS RPT_ITS | CCD ---
Author Name Unknown Address [address] [place] [address] Organization [facility] Care Team Providers Care Knuckler Name Role Phone Abad Villarreal MD Primary Care Provider [phone] Allergies Allergy Classification Reported Allergen(s) Allergy Type Date of Onset Reaction(s) Facility (1 source) Sulfonamides (Antibiotic) Propensity to adverse reactions [facility] Work Phone: Medications Completed/Discontinued Medications Medication Drug Class(es) Dates Sig (Normalized) Sig (Original) ascorbic acid 500 mg oral tablet (1 source) Vitamin C Start: 10-19-2005 VITAMIN C 500 MG TAB Take one(1) tablet daily. 0 10/19/2005 Active Problems Problem Classification Problem Date Documented Da te Episodic/Chronic Conditions associated with dizziness or vertigo (1 source) Dizziness; Translations: [Dizziness and giddiness] Episodic Other connective tissue disease (1 source) Pain in left foot; Translations: [Pain in left foot] Episodic Results Test Name Value Interpretation Reference Range Facil ity Vital Signs Date Time Vital Sign Value Performing Clinician Sandra raymond 11-30-2021 18:47-0400 Body temperature 96.8 [degF] Natasha Mar AIRLINE LOUNGE RECEPTIONIST.CLINIC BUSINESS MANAGER Work Phone: [facility] 11-30-2021 18:47-0400 Body weight 61.69 kg Natasha Mar AIRLINE LOUNGE RECEPTIONIST.CLINIC BUSINESS MANAGER Work Phone: [facility] 11-30-2021 18:47-0400 Diastolic blood pressure 80 mm[Hg] Natasha Mar AIRLINE LOUNGE RECEPTIONIST.CLINIC BUSINESS MANAGER Work Phone: [facility] 11-30-2021 18:47-0400 Heart rate 65 /min Natasha Mar APRN.CLINIC BUSINESS MANAGER Work Phone: [facility] 11-30-2021 18:47-0400 Respiratory rate 20 /min Natasha Mar AIRLINE LOUNGE RECEPTIONIST.CLINIC BUSINESS MANAGER Work Phone: [facility] 11-30-2021 18:47-0400 SaO2% (BldA) [Mass fraction] 100 % Natasha Mar AIRLINE LOUNGE RECEPTIONIST.CLINIC BUSINESS MANAGER Work Phone: [facility] 11-30-2021 18:47-0400 Systolic blood pressure 134 mm[Hg] Natasha Mar AIRLINE LOUNGE RECEPTIONIST.CLINIC BUSINESS MANAGER Work Phone: [facility] Encounters Encounter Date Encounter Type Care Provider Facility Start: 11-30-2021 End: 11-30-2021 Patient encounter procedure Natasha Mar APRN.CLINIC BUSINESS MANAGER Work Phone: [facility] Plan of Treatment Date Care Activity Detail Author Start: 04-13-2022 Influenza vaccination INFLUENZA (Sea son Ended) [facility] Start: 08-13-2021 ADVANCE DIRECTIVE DISCUSSION ADVANCE DIRECTIVE DISCUSSION [facility] Start: 06-08-2021 COVID-19 VACCINE (3 - Booster for Moderna series) COVID-19 VACCINE (3 - Booster for Moderna series) [facility] Start: 1989 SHINGRIX VACCINE (1 of 2) SOLIS GRIX VACCINE (1 of 2) [facility] Start: 1984 DIABETES SCREEN DIABETES SCREEN [facility] Start: 1958 Urine microalbumin profile DTAP,TDAP ,TD (1 - Tdap) [facility] Immunizations Immunization Date Immunization Notes Care Provider Catrina hernandez 05-13-2020 influenza (aIIV4) vaccine, age 65+ yr, quadrivalent, PF (FLUAD QUADRIVALENT) Natasha Mar AIRLINE LOUNGE RECEPTIONIST.CLINIC BUSINESS MANAGER Work Phone: [facility] Work Phone: 05-29-2019 Influenza, injectabl e, Madin [place] Canine Kidney, preservative free, quadrivalent Natasha Mar AIRLINE LOUNGE RECEPTIONIST.CLINIC BUSINESS MANAGER Work Phone: [facility] Work Phone: 06-18-2018 Influenza, injectabl e, Madin Lisbeth Canine Kidney, preservative free, quadrivalent Natasha Mar AIRLINE LOUNGE RECEPTIONIST.CLINIC BUSINESS MANAGER Work Phone: [facility] Work Phone: 08-20-2016 influenza, seasonal, injectable, preservative free Natasha Mar AIRLINE LOUNGE RECEPTIONIST.CLINIC BUSINESS MANAGER Work Phone: [facility] Work Phone: 08-20-2016 pneumococcal polysaccharide vaccine, 23 valent Natasha Mar AIRLINE LOUNGE RECEPTIONIST.CLINIC BUSINESS MANAGER Work Phone: [facility] Work Phone: 06-10-2014 influenza, seasonal, injectable Natasha Mar AIRLINE LOUNGE RECEPTIONIST.CLINIC BUSINESS MANAGER Work Phone: [facility] Work Phone: 06-10-2014 pneumococcal polysaccharide vaccine, 23 valent Natasha Mar AIRLINE LOUNGE RECEPTIONIST.CLINIC BUSINESS MANAGER Work Phone: [facility] Work Phone: 08-25-2009 novel influenza-H1N1 -09, preservative-free, injectable Natasha Mar AIRLINE LOUNGE RECEPTIONIST.CLINIC BUSINESS MANAGER Work Phone: [facility] Work Phone: Payers Date Payer Category Payer Unknown [facility] ANTH MEDIBLUE ACCESS [id number] 2021-Present [phone] [address] [place] [address] [facility] [id number] Social History Date Type Detail Facility [facility] Start: 11-30-2021 Alcohol intake Current drinke r of alcohol (finding) [facility] Start: 03-28-2016 History SDOH Alcohol Comment Occasionally Wine [facility] Start: 1940 Sex Assigned At Not on file [facility] Progress note 11-30-2021 Note Date & Type Note Facility 11-30-2021 Note HNO ID: [id number] Author: Natasha Mar APRN.CLINIC BUSINESS MANAGER Service: ? Author Type: Nurse Practitioner Type: Progress Notes Filed: 11/30/2021 7:02 PM Note Text: 81 year old female with PMH GERD and hypercholesterolemia presents with complaints of foot pain. Endorses that today she has been experiencing bouts of dizziness, never had that Endorses around 3 pm today she got up from laying on couch and not sure what happened, maybe my foot got twisted in blanket and states she fell forward Unsure of head trauma or LOC Given her age and complaints, she will be directed to ED She is reluctant can't you just xray my foot Discussed with patient that her acute onset of dizziness today would also need addressed Family to drive to ED Staff assists patient in wheelchair to car. [facility] History of Present illness Narrative 11-30-2021 Natasha Mar APRN.CLINIC BUSINESS MANAGER - 11/30/2021 6:58 PM EDT Note Date & Type Note Facility 11-30-2021 History of Presen t illness Narrative 81 year old female with PMH GERD and hypercholesterolemia presents with complaints of foot pain. Endorses that today she has been experiencing bouts of dizziness, never had that Endorses around 3 pm today she got up from laying on couch and not sure what happened, maybe my foot got twisted in blanket and states she fell forward Unsure of head trauma or LOC Given her age and complaints, she will be directed to ED She is reluctant can't you just xray my foot Discussed with patient that her acute onset of dizziness today would also need addressed Family to drive to ED Staff assists patient in wheelchair to car. documented in this encounter [facility] Progress note 05-03-2021 Note Date & Type Note Facility 05-03-2021 Note HNO ID: [id number] Author: Barbi Ontiveros MD Service: ? Author Type: ? Type: Progress Notes Filed: 05/03/2021 9:29 AM Note Text: Candie Ferrari is a 80 year old female who presents for problem visit for c/o some spotting last week one time. Grunted when voiding and when wiped has small amount of blood on tissue. Light pink, not bright red. Denies any diarrhea, constipation, dark tarry stools or blood in her stools. Denies any hematuria, feeling of incomplete void or dysuria. History of hysterectomy many years ago for benign disease. No history of abnormal Paps PAST MEDICAL HISTORY Diagnosis Date - Diverticulosis of colon (without mention of hemorrhage) - Esophageal reflux - Generalized osteoarthrosis, unspecified site - Hemorrhage of gastrointestinal tract, unspecified - Internal hemorrhoids without mention of complication - Osteoporosis - Other bursitis disorders Right hip - Pure hypercholesterolemia - Snoring PAST SURGICAL HISTORY Procedure Laterality Date - COLONOSCOP W/ OR W/O [facility] 11/14/05 - COLONOSCOP W/ OR W/O [facility] 10/08/2014 Colonoscopy - PAST SURGICAL HISTORY OF 05/11/01 Flex sigmoidoscopy - PAST SURGICAL HISTORY OF bladder suspension - PAST SURGICAL HISTORY OF vein stripping - TOTAL ABDOM HYSTERECTOMY 1985 Hysterectomy, [facility] FAMILY HISTORY Problem Relation Age of Onset - Stroke Father Late 80's - None Mother Social History Tobacco Use - Smoking status: Never Smoker - Smokeless tobacco: Never Used Substance Use Topics - Alcohol use: Yes Comment: Occasionally Wine - Drug use: No Current Outpatient Medications Medication Sig - nitrofurantoin (MACRODANTIN) 100 mg capsule Take 1 capsule by mouth daily at bedtime. - CALCIUM CARBONATE/VITAMIN D3 (VITAMIN D-3 ORAL) Take by mouth. - VITAMIN C 500 MG TAB Take one(1) tablet daily. - FISH OIL 1,200 MG-144 MG-216 MG CAP 1 tab qd - chlordiazePOXIDE-clidinium 5-2.5 mg per capsule Take 1 capsule by mouth three times daily with meals. (Patient not taking: Reported on 01/14/2020 ) No current facility-administered medications for this visit. Allergies As of Date: 05/03/2021 Allergen Noted Reaction SULFA (SULFONAMIDE ANTIBIOTICS) 10/17/2005 Fully Assessed 05/03/2021 Expanded ROS: N/A Allergies and current medication updated:Yes EXAM: There were no vitals taken for this visit. GENERAL: pleasant, female in no apparent distress ABDOMEN: soft, non-tender and no masses PELVIC: Normal mons pubis, normal labia, widened introitus. Flattened pale, rugae of the vagina. Large midline cystocele and enterocele. Mild rectocele. Attenuated perineal body. Normal perianal area. Might be a small fissure at 12:00. Normal anal sphincter tone, no masses. Uterus and cervix are absent. Vaginal cuff is smooth and nontender, no nodularity ASSESSMENT AND PLAN: Postmenopausal bleeding, status post hysterectomy. No [employer] etiology noted. Suspect may have been rectal. May have a small fissure. There was no bright red bleeding. Patient had colonoscopy in 2014 the recommendation from that note was to repeat in 5 years. Discussed with the patient this and would recommend follow-up for this. She would like to wait till COVID-19 surge has diminished. This is reasonable, contact the office if any further issues. Patient is comfortable with this plan. Prolapses not significantly symptomatic at this time and she does not desire any treatment for this. Medical Decision Making Barbi Ontiveros MD [facility] History of Past illness Narrative 12-12-2013 Note Date & Type Note Facility documented as of this encounter (statuses as of 11/30/2021) [facility] Evaluation note Note Date & Type Note Facility documented in this encounter [facility] Summary Purpose Family History No Family History Records Found Advance Directives No Advanced Directives Records Found Additional Source Comments Source Comments (unrecognize d section and content) In the event this informatio n is protected by the Federal Confidentiality of Alcohol and Drug Abuse Patient Records regulations: The Federal rules restrict any use of the information to criminally investigate or prosecute any alcohol or drug abuse patient.[facility] Reason for Visit (unrecogniz ed section and content) Care Teams (unrecognized sec tion and content) INFORMATION SOURCE (unrecogn ized section and content) FOR RECORDS PERTAINING TO PATIENTS WHO ARE OR HAVE BEEN ENROLLED IN A CHEMICAL DEPENDENCY/SUBSTANCEABUSE PROGRAM, SOME INFORMATION MAY BE OMITTED. This clinical summary was aggregated from multiple sources. Caution should be exercised in using it in the provision of clinical care. This summary normalizes information from multiple sources, and as a consequence, information in this document may materially change the coding, format and clinical context of patient data. In addition, data may be omitted in some cases. CLINICAL DECISIONS SHOULD BE BASED ON THE PRIMARY CLINICAL RECORDS. [facility]. provides no warranty or guarantee of the accuracy or completeness of information in this document.
[2023-08-28 12:16] LABS: Reflex Troponin-HS? (from REC) Y
[2023-08-28 12:44] LABS: Troponin-I HS 6 pg/mL (3.0-54.0)
[2023-08-28 13:15] VITALS: BP 126/66; PULSE 60; RESP 16; O2SAT 97
== END 2023-08-28 14:03 | disposition home or self-care (01) ==
PROVIDERS: Emergency Provider Student in an Organized Health Care Education/Training Program; PCP Family Medicine; Visit Provider Student in an Organized Health Care Education/Training Program
DX: M54.2 Cervicalgia (principal); R00.1 Bradycardia, unspecified
CPT/HCPCS: 71045; 80048; 84484; 85025; 93005; 99284

== ENCOUNTER → 2023-11-21 | Outpatient (CLI) | payer MEDICARE, SELFPAY | END | disposition home or self-care (01) | LOC: LAB 10:53 | PROVIDERS: PCP Family Medicine; Referring Provider Family Medicine; Visit Provider Family Medicine | DX: R41.89 Other symptoms and signs involving cognitive functions and awareness (principal) | CPT/HCPCS: 36415; 82140 ==

== ENCOUNTER → 2024-10-21 | Outpatient (CLI) | payer MEDICARE, SELFPAY ==
--- NOTE | 2024-10-21 15:29 | RAD_ITS ---
PROCEDURE: Left knee radiographs REASON FOR EXAM: Pain, swelling TECHNIQUE: Four views of the left knee COMPARISON: None FINDINGS: See impression RAD/Knee 4 or More Views IMPRESSION: Negative for acute fracture or malalignment. Minimal joint effusion. Mild sup erior patellar enthesopathy. Reading Location: [id number]
[2024-10-21 20:10] LABS: Ferritin 164 ng/mL (22-378); Iron 35 ug/dL (50-170); Iron Binding Capacity,Total 242 ug/dL (250-450); Iron Binding Capacity,Unsat 207 ug/dL (228-428)
[2024-10-21 23:16] LABS: Vitamin B12 258 pg/mL (211-911)
[2024-10-25 00:07] LABS: Vitamin B1, Thiamine 119.5 nmol/L (66.5-200.0)
== END | disposition home or self-care (01) ==
PROVIDERS: PCP Family Medicine; Referring Provider Family Medicine; Visit Provider Family Medicine
DX: F03.918 Unspecified dementia, unspecified severity, with other behavioral disturbance (principal); D64.9 Anemia, unspecified; R41.3 Other amnesia
CPT/HCPCS: 36415; 73564; 82607; 82728; 83540; 83550; 84425; 84443

== ENCOUNTER 2024-10-26 16:32 | Emergency (ER) | payer MEDICARE, SELFPAY ==
[2024-10-26 16:33] VITALS: BP 143/99; PULSE 71; RESP 16; TEMP 37.1; O2SAT 98; BMI 25.6
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
[2024-10-26 17:03] LABS: Absolute Lymphocyte Count 0.92 X10^3/uL (0.83-4.51); Absolute Neutrophil Count 13.2 X10^3/uL (2.0-7.7); Basophil# 0.01 X10^3/uL; Basophil% 0.1 % (0-1); Hematocrit 37.4 % (37-47); Hemoglobin 11.9 g/dL (12.0-15.0); Lymphocyte # 0.92 X10^3/ul (0.83-4.51); Mean Corp Hgb Conc 31.8 g/dL (32-36); Mean Corpuscular Hgb 28.9 pg (27.0-32.0); Mean Corpuscular Volume 90.8 fL (81-99); Monocyte% 7.2 % (0-10); NRBC Flagged by Analyzer 0 % (0-5); Neutrophil # 13.21 X10^3/uL (2.7-7.7); Neutrophil % 85.9 % (47-70); Platelet Count 193 K/mm3 (150-450); RBC Distribution Width CV 14.4 % (11.6-14.6); RBC Distribution Width SD 48.2 fl (35.1-43.9); Red Blood Count 4.12 M/mm3 (4.2-5.4); White Blood Count 15.4 K/mm3 (4.4-11.0)
[2024-10-26 17:06] LABS: Internal QC Validated? YES +Cl - CLEAR BKGD; Pregnancy, Serum, hCG Quali. NEGATIVE Negative
[2024-10-26 17:06] LABS: Bacteria 0 SEEN /hpf (None Seen); Mucous, Urine 0 SEEN /hpf (<or=2+)
[2024-10-26 17:09] LABS: Color, Urine Yellow (Yellow); Glucose, Dipstick Normal (Normal); Ketone-Dipstick Negative (Negative); Leukocyte Esterase-Dipstick 25 /ul (Negative); Nitrite-Dipstick Negative (Negative); Occult Blood-Urine 25 /ul (Negative); Protein-Dipstick 15 mg/dl (Negative); Urine Bilirubin Dipstick Negative (Negative); Urine Clarity Sl. Cloudy (Clear); Urine Urobilinogen Normal (Normal)
[2024-10-26 17:09] LABS: Alcohol, Blood (Medical)-Serum < 10.1 mg/dL (<=10.0)
[2024-10-26 17:21] LABS: Red Blood Cells-Urine 0-5 SEEN /hpf (0-5); Squamous Epithelial Cells - UA 10-25 SEEN /hpf (5-10); White Blood Cells 0-5 SEEN /hpf (0-5)
[2024-10-26 17:22] LABS: Amorphous Sediment 1+ URATE
[2024-10-26 17:25] LABS: Anion Gap 15 (5-15); BUN 36 mg/dL (4-19); BUN/Creat Ratio 33.3 RATIO (10-20); Carbon Dioxide 17.7 mmol/L (21.0-32.0); Chloride 104 mmol/L (98-108); Creatinine, Serum 1.07 mg/dL (0.70-1.20); EST Glomerular Filtration Rate 51 (>60); Estimated Creatinine Clearance 31.01 ml/min (50-250); Glucose 185 mg/dL (70-99); Potassium 4.6 mmol/L (3.3-5.1); Sodium Level 137 mmol/L (133-145)
[2024-10-26] MEDS: LORazepam 0.5 MG Tablet PO (19:57)
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
[2024-10-26 20:32] VITALS: BP 138/78; PULSE 71; RESP 16; TEMP 37.1; O2SAT 98
--- NOTE | 2024-10-26 21:14 | CM.ED ---
Social Work: workers compensation claims adjuster called and made a referral to APS and requested immediate follow up if possible. Elizabeth Heller, PRODUCT DEVELOPMENT, VASCULAR NEUROLOGIST
== END 2024-10-26 20:34 | disposition home or self-care (01) ==
PROVIDERS: Nurse Practitioner; Emergency Provider Emergency Medicine; PCP Family Medicine; Referring Provider Emergency Medicine; Visit Provider Emergency Medicine
DX: F03.90 Unspecified dementia, unspecified severity, without behavioral disturbance, psychotic disturbance, mood disturbance, and anxiety (principal); R45.6 Violent behavior; D72.829 Elevated white blood cell count, unspecified; Z63.0 Problems in relationship with spouse or partner
CPT/HCPCS: 80048; 81001; 82077; 84703; 85025; 99285

== ENCOUNTER → 2024-10-28 | Outpatient (CLI) | payer MEDICARE, SELFPAY ==
--- NOTE | 2024-10-28 13:11 | VDLE_ITS ---
Reason For Study Reason For Study: PAIN RIGHT LEFT CFV is compressible, spontaneous, phasic, competent GSV is normal. and demonstrates normal augmentation. CFV is compressible, spontaneous, phasic, competent, Procedure and demonstrates normal augmentation. This is a venous duplex using B-mode, color flow and FV is compressible, spontaneous, phasic, competent spectral Doppler. and demonstrates normal augmentation. Exam performed in department. POP V is compressible, spontaneous, phasic, competent A preliminary report was called and/or faxed to and demonstrates normal augmentation. Isabel @ 13:35 @ [phone]. T/P Trunk is compressible. PTV is compressible. LT PerV is compressible. VL/Venous Duplex US, Unilateral Interpretation Summary Deep veins of the left lower extremity are patent and compressible segmentally. There is no evidence of left lower extremity deep vein thrombosis. Valvular competence appears intact within the p roximal deep venous system on the left . The left great saphenous vein appears patent and compressible segmentally. The right common femoral vein is patent and compressible . Ordering Physician: Chadd Hall Referring Physician: Chadd Hall Performed By: Leia Lemus, ERIN, RVT
== END | disposition home or self-care (01) ==
LOC: CVS 13:07
PROVIDERS: PCP Family Medicine; Visit Provider Family Medicine
DX: M79.605 Pain in left leg (principal)
CPT/HCPCS: 93971

== ENCOUNTER → 2024-11-10 | Outpatient (CLI) | payer MEDICARE, SELFPAY ==
--- NOTE | 2024-11-10 14:33 | RAD_ITS ---
EXAM: Wrist minimum three views CLINICAL HISTORY: Pain COMPARISON: None available TECHNIQUE: Three views right wrist FINDINGS: Osteopenia. No fracture or dislocation. 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 The other joint spaces appear within limits. Suggestion of subchondral cyst formation of the lunate. Appearance of soft tissue swelling about the wrist. RAD/Wrist min 3 Views IMPRESSION: Osteopenia. No fracture or dislocation. 1st carpometacarpal osteoarthrosis [id number]. The other joint spaces appear within limits. Appearance of soft tissue swelling about the wrist. Reading Location: [id number]
--- NOTE | 2024-11-10 14:55 | RAD_ITS ---
PROCEDURE: HAND MIN 3 VIEWS 11/10/2024 REASON FOR EXAM: PAIN TECHNIQUE: 3 view(s) of the right hand COMPARISON: None available FINDINGS: Osteopenia. No fracture or dislocation. Polyarticular erosive appearing osteoarthrosis with Gull wing deformities greatest at the 2nd greater than 3rd DIP joints greater than 5th PIP joint. Joint space narrowing and mild early Gull wing deformities 2nd through 5th PIP joints. Joint space narrowing 4th and 5th DIP joints. 1st carpometacarpal osteoarthrosis. 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 Reading Location: [id number]
== END | disposition home or self-care (01) ==
LOC: MTRAD 14:31
PROVIDERS: PCP Family Medicine; Referring Provider Nurse Practitioner Family; Visit Provider Nurse Practitioner Family
DX: M79.641 Pain in right hand (principal)
CPT/HCPCS: 73110; 73130